=== PATIENT | male | born 1940 | race Caucasian/White ===

== ENCOUNTER 2021-01-11 22:29 | Emergency (ER) | payer MEDICARE, BC ==
--- NOTE | 2021-01-11 22:46 | EDM.PDOC ---
ED HPI GENERAL MEDICAL PROBLEM - General Stated Complaint: CHEST PAIN / TROUBLE BREATHING SINCE 5 PM TODAY Time Seen by Provider: 01/11/21 22:50 Source of Information: Reports: Patient History Limitations: Reports: No Limitations - History of Present Illness INITIAL COMMENTS - FREE TEXT/NARRATIVE: This 80 yo male patient reports to the ED due to an episode of chest pain. The patient reports between 1530 and 1600 he was sitting in his chair when he had an episode of chest pain. The patient reports his chest pain lasted between 30 - 45 minutes. The patient reports he has not had any additional symptoms and currently does not have any symptoms. The patient reports his in June. The patient reports he currently lives alone with his dog. The patient also reports he noticed today that 4 of his medications have side effects of dizziness, so he did not take his full dose of those medications today. The patient reports he has been eating and drinking, but has not been eating much and normally drinks Coke. The patient called his family after the episode of chest pain and they drove to [place] to bring him into the ED. Onset: Today Onset Date: 01/11/21 Onset Time: 15:30 Duration: Resolved Prior to Arrival Location: Reports: Chest Quality: Reports: Ache Severity: Moderate Improves with: Reports: Other Worsens with: Reports: None Context: Reports: Other Associated Symptoms: Reports: Chest Pain - Related Data Allergies Allergy/AdvReac Type Severity Reaction Status Date / Time piroxicam Allergy Cannot Verified 01/11/21 22:54 Remember Home Meds: Home Meds Digoxin 250 mcg PO DAILY 04/23/14 [History] Fenofibric Acid (Choline) [Trilipix] 160 mg PO DAILY 04/23/14 [History] Multivitamin [Multi Vitamin Daily] 1 tab PO DAILY 04/23/14 [History] Omeprazole 20 mg PO DAILY 04/23/14 [History] carBAMazepine [TEGretol XR] 400 mg PO BID 04/23/14 [History] Acetaminophen [Tylenol] 650 mg PO Q6H PRN 01/11/21 [History] Amiodarone [Cordarone] 0.5 tab PO DAILY 01/11/21 [History] Escitalopram [Lexapro] 10 mg PO DAILY 01/11/21 [History] Furosemide 40 mg PO DAILY 01/11/21 [History] Potassium Chloride 10 mg PO DAILY 01/11/21 [History] Warfarin Sodium 3 mg PO DAILY 01/11/21 [History] atorvaSTATin [Lipitor] 40 mg PO DAILY 01/11/21 [History] carvediloL [Carvedilol] 6.25 mg PO BID 01/11/21 [History] metOLazone [Metolazone] 2.5 mg PO DAILY 01/11/21 [History] ED ROS GENERAL - Review of Systems Review Of Systems: Comprehensive ROS is negative, except as noted in HPI. ED EXAM, GENERAL - Physical Exam Exam: See Below Exam Limited By: No Limitations General Appearance: Alert, WD/WN, Mild Distress Eye Exam: Bilateral Eye: EOMI, Normal Inspection, PERRL Ears: Normal External Exam, Normal Canal, Hearing Grossly Normal, Normal TMs Nose: Normal Inspection, Normal Mucosa, No Blood Throat/Mouth: Normal Inspection, Normal Lips, Normal Teeth, Normal Gums, Normal Oropharynx, Normal Voice, No Airway Compromise Head: Atraumatic, Normocephalic Neck: Normal Inspection, Supple, Non-Tender, Full Range of Motion Respiratory/Chest: No Respiratory Distress, Lungs Clear, Normal Breath Sounds, No Accessory Muscle Use, Chest Non-Tender Cardiovascular: Normal Peripheral Pulses, Regular Rate, Rhythm, No Edema, No Gallop, No JVD, No Murmur, No Rub GI/Abdominal: Normal Bowel Sounds, Soft, Non-Tender, No Organomegaly, No Distention, No Abnormal Bruit, No Mass (Male) Exam: Deferred Rectal (Males) Exam: Deferred Back Exam: Normal Inspection, Full Range of Motion, NT Extremities: Normal Inspection, Normal Range of Motion, Non-Tender, Normal Capillary Refill, No Pedal Edema Neurological: Alert, Oriented, CN II-XII Intact, Normal Cognition, Normal Gait, Normal Reflexes, No Motor/Sensory Deficits Psychiatric: Normal Affect, Normal Mood Skin Exam: Warm, Dry, Intact, Normal Color, No Rash Lymphatic: No Adenopathy #1 Interpretation EKG Date: 01/11/21 Time: 22:35 Rhythm: Other (AV Paced rhythm) [place]: Normal P-Wave: Present (paced) QRS: Wide Comparison: NA - No Prior EKG Course - Vital Signs Last Recorded V/S: Last Vital Signs Temp 96.8 F L 01/11/21 23:04 Pulse 63 01/11/21 23:04 Resp 19 01/11/21 23:04 BP 100/76 01/11/21 23:04 Pulse Ox 100 01/11/21 23:04 - Orders/Labs/Meds Orders: Active Orders 24 hr Category Date Time Status EKG Documentation Completion [RC] STAT Care 01/11/21 22:31 Active Chest 1V Frontal [CR] Urgent Exams 01/11/21 22:31 Ordered Labs: Laboratory Tests 01/11/21 01/11/21 01/11/21 Range/Units 22:37 22:37 22:37 WBC 4.8 L (5.0-10.0) 10^3/uL RBC 4.40 L (4.6-6.2) 10^6/uL Hgb 13.5 L (14.0-18.0) g/dL Hct 40.2 (40.0-54.0) % MCV 91.4 (80-100) fL MCH 30.7 (27.0-34.0) pg MCHC 33.6 (33.0-35.0) g/dL Plt Count 229 (150-450) 10^3/uL Neut % (Auto) 53.2 (42.2-75.2) % Lymph % (Auto) 26.5 (20.5-50.1) % [place] % (Auto) 14.7 H (2-8) % Eos % (Auto) 4.6 H (1.0-3.0) % Baso % (Auto) 1.0 (0.0-1.0) % PT (9.0-12.0) SEC INR (0.9-1.2) Sodium 145 (136-145) mmol/L Potassium 4.1 (3.5-5.1) mmol/L Chloride 105 (98-107) mmol/L Carbon Dioxide 32 (21-32) mmol/L Anion Gap 12.1 (7-13) mEq/L BUN 51 H (7-18) mg/dL Creatinine 2.07 H (0.70-1.30) mg/dL Est Cr Clr Drug Dosing 22.24 mL/min Estimated GFR (MDRD) 31 BUN/Creatinine Ratio 24.6 (No establ ref range) Glucose 165 H (70-99) mg/dL Lactic Acid 1.5 (0.4-2.0) mmol/L Calcium 9.4 (8.5-10.1) mg/dL Total Bilirubin 0.4 (0.2-1.0) mg/dL AST 45 H (15-37) U/L ALT 38 (16-63) U/L Alkaline Phosphatase 39 L (46-116) U/L Troponin I High Sens 74 (<=76) pg/mL B-Natriuretic Peptide 2080 H (0-100) pg/ml Total Protein 7.0 (6.4-8.2) g/dL Albumin 3.6 (3.4-5.0) g/dL Globulin 3.4 Albumin/Globulin Ratio 1.1 Influenza Type A RNA (NEGATIVE) Influenza Type B RNA (NEGATIVE) SARS-CoV-2 RNA (GURDEEP) (NEGATIVE) 01/11/21 01/11/21 Range/Units 22:37 22:45 WBC (5.0-10.0) 10^3/uL RBC (4.6-6.2) 10^6/uL Hgb (14.0-18.0) g/dL Hct (40.0-54.0) % MCV (80-100) fL MCH (27.0-34.0) pg MCHC (33.0-35.0) g/dL Plt Count (150-450) 10^3/uL Neut % (Auto) (42.2-75.2) % Lymph % (Auto) (20.5-50.1) % [place] % (Auto) (2-8) % Eos % (Auto) (1.0-3.0) % Baso % (Auto) (0.0-1.0) % PT 34.2 H (9.0-12.0) SEC INR 3.5 H (0.9-1.2) Sodium (136-145) mmol/L Potassium (3.5-5.1) mmol/L Chloride (98-107) mmol/L Carbon Dioxide (21-32) mmol/L Anion Gap (7-13) mEq/L BUN (7-18) mg/dL Creatinine (0.70-1.30) mg/dL Est Cr Clr Drug Dosing mL/min Estimated GFR (MDRD) BUN/Creatinine Ratio (No establ ref range) Glucose (70-99) mg/dL Lactic Acid (0.4-2.0) mmol/L Calcium (8.5-10.1) mg/dL Total Bilirubin (0.2-1.0) mg/dL AST (15-37) U/L ALT (16-63) U/L Alkaline Phosphatase (46-116) U/L Troponin I High Sens (<=76) pg/mL B-Natriuretic Peptide (0-100) pg/ml Total Protein (6.4-8.2) g/dL Albumin (3.4-5.0) g/dL Globulin Albumin/Globulin Ratio Influenza Type A RNA Negative (NEGATIVE) Influenza Type B RNA Negative (NEGATIVE) SARS-CoV-2 RNA (GURDEEP) Negative (NEGATIVE) - Radiology Interpretation Free Text/Narrative:: [facility] Final Radiology Report Call: [phone] assistance Online chat: [email or web address] Name: SIERRA COVARRUBIAS Age: 80Years M Date: 01/11/2021 SSN: -- : [id number] Study: CR CHEST 1V FRONTAL Requesting Physician: Diego Chávez Images: 2 Addl Studies: Provided Clinical History: chest pain Contrast: Contrast Medium: Contrast Amount: Contrast Method: CONFIDENTIALITY STATEMENT This report is intended only for use by the referring physician, and only in accordance with law. If you received this in error, call [phone]. Page 1 of 1 PROCEDURE INFORMATION: Exam: XR Chest Exam date and time: 01/11/2021 10:48 PM Age: 80 years old Clinical indication: Other: Chest pain TECHNIQUE: Imaging protocol: XR of the chest. Views: 1 view. COMPARISON: No relevant prior studies available. FINDINGS: Tubes, catheters and devices: Multiple pacer leads noted. Leads project over the patient. Lungs: Unremarkable. No consolidation. Pleural spaces: Unremarkable. No pleural effusion. No pneumothorax. Heart/Mediastinum: Heart is mildly enlarged. Bones/joints: Kyphotic view. Other findings: Rotation. IMPRESSION: No focal consolidation Thank you for allowing us to participate in the care of your patient. Dictated and Authenticated by: Dylon Pastrana MD 01/11/2021 11:33 PM Central Time ([place] & [place]) Departure - Departure Time of Disposition: 23:33 Disposition: Home, Self-Care 01 Condition: Fair Clinical Impression: Nonspecific chest pain Instructions: Nonspecific Chest Pain, Adult, [id number] Forms: ED Department Discharge Care Plan Goals: The patient and family were advised of the examination, lab, EKG and X-ray results during the visit. The patient was encouraged to take his medications as prescribed. If the patient believes he has some side effects of his medications, the patient was encouraged to discuss these medications with his primary care provider. The patient was encouraged to increase his oral food intake. If the patient has any additional symptoms or concerns, the patient should either return to the emergency department or visit his primary care facility. Sepsis Event Note (ED) - Focused Exam Vital Signs: Vital Signs Temp Pulse Resp BP Pulse Ox 01/11/21 23:04 96.8 F L 63 19 100/76 100 01/11/21 22:50 98.6 F 69 21 H 119/68 99 - My Orders Last 24 Hours: My Active Orders 01/11/21 22:31 EKG Documentation Completion [RC] STAT Chest 1V Frontal [CR] Urgent - Assessment/Plan Last 24 Hours: My Active Orders 01/11/21 22:31 EKG Documentation Completion [RC] STAT Chest 1V Frontal [CR] Urgent
[2021-01-11 23:12] LABS: ANION GAP 12.1 mEq/L (7-13)
[2021-01-11 23:28] LABS: CORONAVIRUS COVID-19 NAA NEGATIVE (NEGATIVE)
--- NOTE | 2021-01-11 23:33 | CR ---
PROCEDURE INFORMATION: Exam: XR Chest Exam date and time: 01/11/2021 10:48 PM Age: 80 years old Clinical indication: Other: Chest pain TECHNIQUE: Imaging protocol: XR of the chest. Views: 1 view. COMPARISON: No relevant prior studies available. FINDINGS: Tubes, catheters and devices: Multiple pacer leads noted. Leads project over the patient. Lungs: Unremarkable. No consolidation. Pleural spaces: Unremarkable. No pleural effusion. No pneumothorax. Heart/Mediastinum: Heart is mildly enlarged. Bones/joints: Kyphotic view. Other findings: Rotation. IMPRESSION: No focal consolidation
== END 2021-01-11 23:41 | disposition home or self-care (01) ==
LOC: DL.ED 22:29
DX: R07.9 Chest pain, unspecified (principal); Z88.6 Allergy status to analgesic agent; Z79.899 Other long term (current) drug therapy; Z20.822 Contact with and (suspected) exposure to COVID-19
CPT/HCPCS: 0240U; 36415; 71045; 80053; 83605; 83880; 84484; 85025; 85610; 93005; 93010; 99284; 99285-25

== ENCOUNTER 2022-03-29 13:07 | Inpatient (IN) | payer MEDICARE, BC ==
[2022-03-29 14:15] LABS: ANION GAP 17.9 mEq/L (7-13)
[2022-03-29 14:20] LABS: PTT,PARTIAL THROMBOPLSTIN TIME 29.9 SEC (22.0-34.0)
[2022-03-29] MEDS ORDERED: Furosemide 40 MG/4 ML VIAL IVPUSH ONE (15:00)
[2022-03-29] MEDS: Sodium Chloride 0.9% 10 ML Syringe FLUSH PRN (15:14)
[2022-03-29] MEDS ORDERED: Polyethylene Glycol 3350 Powder 17 GM Packet PO PRN (16:20)
[2022-03-29] MEDS ORDERED: Ondansetron 4 MG/2 ML SDV IVPUSH PRN (16:20)
[2022-03-29] MEDS ORDERED: Albuterol/Ipratropium 3.0-0.5 MG/3 ML Neb Soln NEB PRN (16:20)
[2022-03-29] MEDS ORDERED: HYDROmorphone 0.5 MG/0.5 ML Syringe IVPUSH PRN (16:20)
[2022-03-29] MEDS ORDERED: Magnesium Hydroxide 400 MG/5 ML Susp 30 ML Cup PO PRN (16:20)
[2022-03-29 16:29] LABS: CORONAVIRUS COVID-19 NAA NEGATIVE (NEGATIVE); RESPIRATORY SYNCYTIAL VIR NAA NEGATIVE (NEGATIVE)
[2022-03-29] MEDS ORDERED: Sodium Chloride 0.9% 500 ML IV SCH (17:00)
[2022-03-29] MEDS ORDERED: Acetaminophen 325 MG Tab PO PRN (17:46)
[2022-03-29] MEDS: Midodrine 2.5 MG Tab PO SCH (20:01)
[2022-03-29] MEDS: carBAMazepine 200 MG TAB.ER PO SCH (20:09)
[2022-03-29] MEDS: Carvedilol 6.25 MG Tab PO SCH (20:10)
[2022-03-29] MEDS: Melatonin 3 MG Tab PO PRN (21:10)
[2022-03-30] MEDS: Midodrine 2.5 MG Tab PO SCH ×3 (05:15→17:25)
[2022-03-30 07:05] LABS: ANION GAP 15.6 mEq/L (7-13)
[2022-03-30] MEDS ORDERED: atorvaSTATin 20 MG Tab PO SCH (09:00)
[2022-03-30] MEDS: Multivitamin Tab PO SCH (09:11)
[2022-03-30] MEDS: Omeprazole 20 MG Cap.CR PO SCH (09:11)
[2022-03-30] MEDS: Escitalopram 10 MG Tab PO SCH (09:12)
[2022-03-30] MEDS: Fenofibrate Nanocrystallized 145 MG Tab PO SCH (09:12)
[2022-03-30] MEDS: carBAMazepine 200 MG TAB.ER PO SCH ×2 (09:12→22:40)
[2022-03-30] MEDS: Carvedilol 6.25 MG Tab PO SCH ×2 (09:13→22:46)
[2022-03-30] MEDS: Amiodarone 200 MG Tab PO SCH (09:14)
[2022-03-30] MEDS: Digoxin 250 MCG Tab PO SCH (09:17)
[2022-03-30] MEDS: Sodium Chloride 0.9% 10 ML Syringe FLUSH PRN (22:44)
[2022-03-31] MEDS: Midodrine 2.5 MG Tab PO SCH ×2 (06:03→17:04)
[2022-03-31] MEDS: Fenofibrate Nanocrystallized 145 MG Tab PO SCH (08:46)
[2022-03-31] MEDS: Carvedilol 3.125 MG Tab PO SCH ×2 (08:47→17:05)
[2022-03-31] MEDS: Escitalopram 10 MG Tab PO SCH (08:47)
[2022-03-31] MEDS: Digoxin 250 MCG Tab PO SCH (08:47)
[2022-03-31] MEDS: Sodium Chloride 0.9% 10 ML Syringe FLUSH PRN (08:48)
[2022-03-31] MEDS: Omeprazole 20 MG Cap.CR PO SCH (08:48)
[2022-03-31] MEDS: Multivitamin Tab PO SCH (08:48)
[2022-03-31] MEDS: carBAMazepine 200 MG TAB.ER PO SCH ×2 (08:48→21:15)
[2022-03-31] MEDS: Amiodarone 200 MG Tab PO SCH (08:49)
[2022-03-31] MEDS: Acetaminophen 325 MG Tab PO PRN (12:22)
[2022-04-01] MEDS: Midodrine 2.5 MG Tab PO SCH ×3 (04:36→15:58)
[2022-04-01 06:57] LABS: ANION GAP 14.5 mEq/L (7-13)
[2022-04-01] MEDS: Sodium Chloride 0.9% 10 ML Syringe FLUSH PRN ×2 (08:48→10:53)
[2022-04-01] MEDS: Escitalopram 10 MG Tab PO SCH (10:42)
[2022-04-01] MEDS: Carvedilol 3.125 MG Tab PO SCH ×2 (10:42→17:24)
[2022-04-01] MEDS: Amiodarone 200 MG Tab PO SCH (10:42)
[2022-04-01] MEDS: carBAMazepine 200 MG TAB.ER PO SCH ×2 (10:43→20:22)
[2022-04-01] MEDS: Omeprazole 20 MG Cap.CR PO SCH (10:43)
[2022-04-01] MEDS: Fenofibrate Nanocrystallized 145 MG Tab PO SCH (10:43)
[2022-04-01] MEDS: Multivitamin Tab PO SCH (10:43)
[2022-04-01] MEDS: Furosemide 40 MG/4 ML VIAL IVPUSH SCH (10:54)
[2022-04-01] MEDS: Metolazone 2.5 MG Tab PO SCH (10:55)
[2022-04-01] MEDS: Digoxin 250 MCG Tab PO SCH (17:44)
[2022-04-01] MEDS: Melatonin 3 MG Tab PO PRN (20:22)
[2022-04-02] MEDS: Midodrine 2.5 MG Tab PO SCH ×3 (05:41→19:31)
[2022-04-02 07:17] LABS: ANION GAP 17.4 mEq/L (7-13)
[2022-04-02] MEDS: Furosemide 40 MG/4 ML VIAL IVPUSH SCH (08:53)
[2022-04-02] MEDS: Sodium Chloride 0.9% 10 ML Syringe FLUSH PRN ×3 (08:56→18:53)
[2022-04-02] MEDS: Omeprazole 20 MG Cap.CR PO SCH (08:57)
[2022-04-02] MEDS: Amiodarone 200 MG Tab PO SCH ×2 (08:59→12:44)
[2022-04-02] MEDS: LORazepam 2 MG/ML SDV IVPUSH PRN ×3 (09:11→18:52)
[2022-04-02] MEDS: Acetaminophen 650 MG Supp RECTAL PRN (11:02)
[2022-04-02] MEDS: Carvedilol 3.125 MG Tab PO SCH ×2 (12:43→19:32)
[2022-04-02] MEDS: Multivitamin Tab PO SCH (12:44)
[2022-04-02] MEDS: Fenofibrate Nanocrystallized 145 MG Tab PO SCH (12:44)
[2022-04-02] MEDS: carBAMazepine 200 MG TAB.ER PO SCH (12:44)
[2022-04-02] MEDS: Metolazone 2.5 MG Tab PO SCH (12:44)
[2022-04-02] MEDS: Escitalopram 10 MG Tab PO SCH (12:44)
[2022-04-03] MEDS: carBAMazepine 200 MG TAB.ER PO SCH ×2 (05:40→09:03)
[2022-04-03] MEDS: Acetaminophen 325 MG Tab PO PRN (08:46)
[2022-04-03] MEDS: Midodrine 2.5 MG Tab PO SCH ×2 (09:02→15:05)
[2022-04-03] MEDS: Amiodarone 200 MG Tab PO SCH (09:02)
[2022-04-03] MEDS: Carvedilol 3.125 MG Tab PO SCH ×2 (09:02→17:08)
[2022-04-03] MEDS: Escitalopram 10 MG Tab PO SCH (09:02)
[2022-04-03] MEDS: Omeprazole 20 MG Cap.CR PO SCH (09:03)
[2022-04-03] MEDS: Multivitamin Tab PO SCH (09:03)
[2022-04-03] MEDS: Fenofibrate Nanocrystallized 145 MG Tab PO SCH (09:03)
[2022-04-03] MEDS: Furosemide 40 MG/4 ML VIAL IVPUSH SCH (09:53)
[2022-04-03] MEDS: Metolazone 2.5 MG Tab PO SCH (09:53)
[2022-04-03] MEDS: LORazepam 2 MG/ML SDV IVPUSH PRN ×2 (10:27→15:56)
[2022-04-03] MEDS: Acetaminophen 650 MG Supp RECTAL PRN (13:31)
[2022-04-04] MEDS: Morphine 2 MG/ML SYRINGE IVPUSH PRN ×3 (00:57→11:42)
[2022-04-04] MEDS: LORazepam 2 MG/ML SDV IVPUSH PRN ×2 (09:12→13:18)
[2022-04-04] MEDS ORDERED: Morphine 2 MG/ML SYRINGE IVPUSH PRN (13:22)
[2022-04-04] MEDS ORDERED: LORazepam 2 MG/ML SDV IVPUSH PRN (13:22)
== END 2022-04-04 20:13 | disposition expired | DRG 291 ==
LOC: DL.ED 13:07 → DL.MS 16:09
PROVIDERS: ADMIT Internal Medicine; ATTEND Internal Medicine
DX: I50.33 Acute on chronic diastolic (congestive) heart failure (principal); R53.1 Weakness; I13.0 Hypertensive heart and chronic kidney disease with heart failure and stage 1 through stage 4 chronic kidney disease, or unspecified chronic kidney disease; I50.23 Acute on chronic systolic (congestive) heart failure; N17.9 Acute kidney failure, unspecified; E87.20 Acidosis, unspecified; Z20.822 Contact with and (suspected) exposure to COVID-19; I42.9 Cardiomyopathy, unspecified; Z51.5 Encounter for palliative care; Z66 Do not resuscitate; I50.84 End stage heart failure; I25.10 Atherosclerotic heart disease of native coronary artery without angina pectoris; I48.91 Unspecified atrial fibrillation; I49.5 Sick sinus syndrome; E78.00 Pure hypercholesterolemia, unspecified; K72.90 Hepatic failure, unspecified without coma; E78.5 Hyperlipidemia, unspecified; R79.1 Abnormal coagulation profile; K21.9 Gastro-esophageal reflux disease without esophagitis; I27.20 Pulmonary hypertension, unspecified; N18.30 Chronic kidney disease, stage 3 unspecified; I95.9 Hypotension, unspecified; G40.909 Epilepsy, unspecified, not intractable, without status epilepticus; M81.0 Age-related osteoporosis without current pathological fracture; F32.A Depression, unspecified; R73.9 Hyperglycemia, unspecified; F41.0 Panic disorder [episodic paroxysmal anxiety]; R45.1 Restlessness and agitation; Z95.810 Presence of automatic (implantable) cardiac defibrillator; Z86.73 Personal history of transient ischemic attack (TIA), and cerebral infarction without residual deficits; Z88.8 Allergy status to other drugs, medicaments and biological substances; Z79.899 Other long term (current) drug therapy; Z79.01 Long term (current) use of anticoagulants
CPT/HCPCS: 0241U; 36415; 71045; 80053; 80162; 81001; 82306; 82947; 83605; 83735; 83880; 84443; 84484; 85025; 85610; 85730; 93005; 97110; 97116; 97161; 97165; 97530; 96374; 99285-25; A9270-GY; J1170; J1940; J2060; J2270; J3490; J7040